=== PATIENT | male | born 1965 | race Caucasian/White ===

== ENCOUNTER 2017-01-11 06:48 | Emergency (ER) | payer OTHER ==
--- NOTE | ~2017-01-11 | CR281 ---
[facility] A Service of [facility] & [facility] RADIOLOGY TEXT RESULTS PATIENT: ESTEFANY DON LOCATION: SED : 61 UNIT #: [id number] AGE: [address]: Niles Tyler MD SEX: M ORDER DR: [id number] [place] [id number] E MR#: [id number] Acc #: [id number] NAME: ESTEFANY DON. : 1965 SEX: M STUDY DATE/TIME: 01/11/2017 7:51 UNIT: SED ROOM: STUDY DESCRIPTION: CR Wrist Min 3 View Lt Attending Physician: Niles Tyler M.D. Ordering Physician: Niles Tyler M.D. Primary Care Physician: Primary Care Physician No MEDICAL IMAGING REPORT This report is preliminary unless electronic signature is present. EXAM 3 views of the left wrist INDICATIONS Pain and swelling for about a month which has worsened over the past 3 days. Patient has no known injury. FINDINGS The patient has evidence of an old ulnar styloid fracture, but no acute fracture or subluxation is seen. There is some lucencies seen within the distal ulna, however the appearance is really more suggestive of subchondral cyst-like change. There does however appear to be some soft tissue swelling overlying the ulnar aspect the wrist. IMPRESSION Old ulnar styloid fracture. No acute fracture is seen. Patient does have some lucent areas within the distal ulna, which really have more the appearance of subchondral cyst-like change. No definite jaden erosive arthropathy is seen although the patient does have soft tissue swelling overlying the ulnar aspect of the wrist. If symptoms persist, further evaluation with MRI is recommended. Dictated by... Olga Barnett M.D. THIS IS AN ELECTRONICALLY VERIFIED REPORT Olga Barnett M.D. at 01/12/2017 4:35 PM AFF/to TD: 01/11/2017 17:22 JOB #: [id number] [facility] A Service of [facility] & [facility] RADIOLOGY TEXT RESULTS PATIENT: ESTEFANY DON LOCATION: [facility] : 61 UNIT #: [id number] AGE: [address]: Niles Tyler MD SEX: M ORDER DR: MEDICAL IMAGING REPORT Page 1 of 1
[~2017-01-11 06:48] MED LIST: CITALOPRAM HBR40 MG; ESCITALOPRAM OX10 MG PO; HUMALOG100 U/M2 SUBQ; LANTUS100 U/ML SUBQ; LISINOPRIL-HCTZ1 T21 PO; LISINOPRIL20 MG PO; LORTAB 10-3251 EACH PO; MIRAPEX ER2.25 MG PO; MOBIC PO; NEURONTIN600 MG PO; PRAMIPEXOLE DI0.5 MG PO; SYNTHROID PO; TRAZODONE HCL150 MG PO; VITAMIN D50000 UNIT PO
[2017-01-27] MEDS ORDERED: BASAGLAR K100 UNIT/1 SUBQ (14:00)
[2017-01-27] MEDS ORDERED: VITAMIN D250000 UNIT PO (14:00)
[2017-01-27] MEDS ORDERED: NEURONTIN600 MG PO (14:01)
[2017-01-27] MEDS ORDERED: PRAMIPEXOLE DI0.5 MG PO (14:01)
[2017-01-27] MEDS ORDERED: ZESTORETIC 20-1 EAC2 PO (14:01)
[2017-01-27] MEDS ORDERED: ESCITALOPRAM OX10 MG PO (14:02)
[2017-01-27] MEDS ORDERED: MELOXICAM7.5 MG PO (14:02)
[2017-01-27] MEDS ORDERED: LORTAB 10-3251 EACH PO (14:03)
[2017-01-27] MEDS ORDERED: TRAZODONE HCL150 MG PO (14:04)
[2017-01-27] MEDS ORDERED: ZESTORETIC 10-1 EAC1 PO (14:04)
[2017-01-27] MEDS ORDERED: LANTUS100 U/ML SUBQ (14:05)
[2017-01-27] MEDS ORDERED: HUMALOG100 UNIT/1 SUBQ (14:05)
== END 2017-01-11 07:15 | disposition home or self-care (01) ==
LOC: SED 06:48
DX: M25.532 Pain in left wrist (principal); E11.9 Type 2 diabetes mellitus without complications; I10 Essential (primary) hypertension; Z79.4 Long term (current) use of insulin; Z79.899 Other long term (current) drug therapy
CPT/HCPCS: 29125; 73110; 99283

== ENCOUNTER 2017-01-27 14:38 | Inpatient (IN) | payer OTHER ==
--- NOTE | ~2017-01-27 | CR72 ---
[facility] A Service of [facility] & [facility] RADIOLOGY TEXT RESULTS PATIENT: ESTEFANY DON LOCATION: [place] [address] : 61 UNIT #: [id number] AGE: [address]: Dexter Rodarte MD SEX: M ORDER DR: [id number] [facility] [address] [facility]. [place], [place] [address] [id number] I MR#: [id number] Acc #: [id number] NAME: ESTEFANY DON. : 1965 SEX: M STUDY DATE/TIME: 01/27/2017 15:38 UNIT: CEDOF ROOM: 71387 STUDY DESCRIPTION: CR Chest Single View Portable Attending Physician: Morgan Huynh M.D. Ordering Physician: Hiram Burgso D.O. Primary Care Physician: No Primary Care Physician MEDICAL IMAGING REPORT This report is preliminary unless electronic signature is present EXAM Portable chest. DATE OF EXAM 01/27/2017 INDICATIONS Weakness and hypotension today, high blood sugar. COMPARISON Comparison with 07/13/2008. FINDINGS The lungs are well expanded. There is no acute infiltrate. Heart size stable. Visualized osseous structures are unremarkable. IMPRESSION No active disease. Dictated by... Singh Randle M.D. THIS IS AN ELECTRONICALLY VERIFIED REPORT Singh Randle M.D. at 01/28/2017 10:02 AM TOMAS/eboni TD: 01/27/2017 19:52 JOB #: [id number] MEDICAL IMAGING REPORT Page 1 of 1 COPY
--- NOTE | ~2017-01-27 | EKG ---
PATIENT: ESTEFANY DON UNIT #: [id number] Ventricular Rate: 87 BPM Atrial Rate: 87 BPM P-R Interval: 170 ms QRS Duration: 100 ms Q-T Interval: 474 ms QTC Calculation(Bezet): 570 ms P Wilton: -4 degrees Calculated R Wilton: 50 degrees Calculated T Wilton: 23 degrees Diagnosis Line: Normal sinus rhythm Diagnosis Line: Prolonged QT Diagnosis Line: Abnormal ECG Diagnosis Line: When compared with ECG of 15-MAY-2016 20:21, Diagnosis Line: Nonspecific T wave abnormality has replaced Diagnosis Line: inverted T waves in Anterior leads Diagnosis Line: QT has lengthened Diagnosis Line: Confirmed by CHELE DOVER MD ([id number]) on 01/28/2017 Diagnosis Line: 7:16:25 PM INTERPRETING MD: STANISLAW JONES
--- NOTE | ~2017-01-27 | A ---
[facility] Nutrition Therapy DATE: 01/29/17 Patient: ESTEFANY DON Physician: HECTOR Address: [address] [place] [address] Room/Bed: [address] [place] [address], Zip: [place] [address] Admit Date: 01/27/17 Date of : 61 Height: 5 6 Weight: 231 105.2 NUTRITIONAL ASSESSMENT: REASON: Diet education consult Admitting Dx: 51 y/o male admitted with uncontrolled DM PMH: T2DM (since 2008), HTN, DJD, chronic pain related to neuropathy, hypothyroidism Anthropometrics: Ht: 66", Wt: 105.2 kg, BMI: 36 (Stage II obese) Labs: Glucose 87, POC 264, A1C 11.7 (05/2016) Meds: Levemir 40 units BID, Novolog (high SSI) Assessment: Chart reviewed, events noted. Patient admitted with uncontrolled DM, MD notes non-compliance with diet and medications. RD consulted to provide diet education. Patient lives with his sister. He takes insulin at home however does not always take with his meals. Currently on CC diet; reports usually eating only 1 meal per day and drinks 2L soda (diet and regular) daily. Dr. London saw for diabetes management and changed his insulin regimen, MD encouraged diet and med compliance. RD provided both verbal and written diet education with diabetic label reading tips, 1800 calorie 5-day sample menu and weight loss handouts. Patient showed moderate understanding and questionable motivation to follow diet, states "I know what to do I just need to do it." Glucose now better controlled, no new A1C lab available. See recs. Dx: Altered nutrition related lab values r/t uncontrolled DM AEB admission glucose 869, A1C 11.7 in 05/2016, RD consult for diet education. Intervention: DM/weight loss education Monitoring, Evaluation and Goals: 1. Gradual weight loss towards a healthy BMI range. 2. Understanding and implementation of DM diet. Recommendations: Continue current diet, encourage compliance with diet education that was provided as well as medications. Encourage weight loss. Optimize insulin regimen. Respectfully, [facility] Nutrition Therapy DATE: 01/29/17 Patient: ESTEFANY DON Physician: HECTOR Address: [address] [place] [address] Room/Bed: [address] [place] [address], Zip: [place] [address] Admit Date: 01/27/17 Date of : [birth year] Height: 5 6 Weight: [address], LD [facility] cc: client file
--- NOTE | ~2017-01-27 | DS ---
Unit #: [id number] #: [id number] Patient: ESTEFANY DON [id number] [facility] [address]. [place], [place] [address] [id number] I MR#: [id number] NAME: ESTEFANY DON. ROOM: 556 Age: 51 Sex: M Admission Date: 01/27/2017 : 1965 Discharge Date: 01/29/2017 Attending Physician: Dexter Rodarte M.D. Primary Care Physician: No Primary Care Physician DISCHARGE SUMMARY DIAGNOSES ON ADMISSION 1. Uncontrolled diabetes mellitus. 2. Lactic acidosis. DIAGNOSES ON DISCHARGE 1. Lactic acidosis, resolved. 2. Insulin-dependent diabetes mellitus, uncontrolled. 3. Hyponatremia, improved. 4. Degenerative joint disease. 5. History of neuropathy. 6. Hypothyroidism. CONSULTATION Dr. London in endocrinology consult. DIAGNOSTIC STUDIES LABORATORY: Patient's creatinine is 0.8. Sodium is 137, potassium is 3.6. WBC 7.6, hemoglobin 13.8, platelet count 211,000. The patient's blood cultures did not reveal any growth so far. Lactic acid level was 1.1. IMAGING: Chest x-ray did not reveal any active disease. CT scan of head did not reveal any acute findings. HOSPITAL COURSE A 51-year-old patient presented to [facility] with hyperglycemia and weakness. Details are as per admission H and P. The patient was treated for uncontrolled diabetes mellitus. He received IV fluids. The patient has responded well to treatment and he is feeling much better. Dr. London saw patient in constipation. Today patient is comfortable, is not in any acute distress. PHYSICAL EXAMINATION VITAL SIGNS: Reveal temperature of 98.4, pulse is 91 per minute, respiratory rate is 16 per minute, blood pressure is 115/68. HEENT: Revealed no conjunctival congestion. Sclerae is nonicteric. NECK: Supple. Trachea is central. RESPIRATORY: Revealed breath sounds equal bilaterally. No wheezes or crackles. HEART: Regular rate and rhythm. S1, S2. ABDOMEN: Soft, nontender. Bowel sounds are present in all four quadrants. Unit #: [id number] #: [id number] Patient: ESTEFANY DON NEUROLOGIC: The patient is alert to person, place, and time. Power is 5/5 bilaterally. Sensations are grossly intact. SKIN: Warm and dry. RECOMMENDATIONS ON DISCHARGE Condition is stable. Activity is as tolerated. MEDICATIONS As per med rec, medications are followin. Lisinopril/hydrochlorothiazide 10/12.5 mg p.o. daily. 2. Neurontin 600 mg p.o. four times a day. 3. Lexapro 10 mg p.o. daily. 4. Trazodone 150 mg p.o. nightly. 5. Pramipexole 0.5 mg p.o. daily. 6. Basaglar 100 units subcutaneous nightly. 7. Humalog 10 units subcutaneous t.i.d. 8. Lortab 10 mg p.o. q.6 hours p.r.n. which is a home med. 9. Vitamin D 50 units p.o. q. weekly. FOLLOWUP 1. The patient is advised to follow up with primary care physician in one week and have a CBC and BMP done. 2. Patient is advised to call primary care physician or go to ER if his condition changes. 3. Patient is advised to follow up with Dr. London in two to three weeks. The patient is advised to have Accu-Cheks a.c. and nightly and call primary care physician if less than 80 or greater than 400. The plan was discussed in detail with patient who showed complete understanding. Dictated by... Rachel Bernard TD: 01/29/2017 10:21 JOB #: [id number] CC: Ned Luna M.D. DISCHARGE SUMMARY Page 1 of 1 X Dexter Rodarte MD X DISCHARGE SUMMARY
--- NOTE | ~2017-01-27 | HP ---
Unit #: [id number] #: [id number] Patient: ESTEFANY DON [id number] [address] [address] [id number] I MR#: [id number] NAME: ESTEFANY DON. ROOM: 11154 Age: 51 Sex: M Admission Date: 01/27/2017 : 1965 Attending Physician: Morgan Huynh M.D. Primary Care Physician: No Primary Care Physician HISTORY AND PHYSICAL CHIEF COMPLAINT The high sugars and right leg weakness and shakiness. HISTORY OF PRESENT ILLNESS The patient is a 51-year-old male with a history of a type 2 diabetes mellitus, hypertension, chronic pain, presented to the emergency room with the high sugars and the right leg weakness and shakiness. The patient stated the patient woke up at one o'clock this morning and went to the bathroom. While returning from bathroom patient felt weakness and numbness in the right leg below the knee. The patient denies any dizziness, any headache or any fall. The patient stated the patient has been started on a new medication yesterday and the patient took the first dose or Basaglar KwikPen last night. The patient was found to be hypotensive in the emergency room with the blood pressure in the range of 86 and lactic acid elevated up to 3.9 and the patient is being admitted for the above reasons. Patient denies any fever, chills, nausea or vomiting, chest pain, dizziness. PAST MEDICAL HISTORY History of DJD, chronic pain secondary to neuropathy and polyneuropathy along with DJD, type 2 diabetes since 2008, hypertension, hypothyroidism. 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 ALLERGIES None. HOME MEDICATIONS She takes Neurontin, pramipexole, Lexapro, Lortab, trazodone, lisinopril, hydrochlorothiazide and Humalog. FAMILY HISTORY Positive for diabetes. SOCIAL HISTORY The patient lives with his sister, seldom drinks alcohol, is a lifelong nonsmoker and does not abuse drugs. REVIEW OF SYMPTOMS Fourteen-point review of symptoms performed and only pertinent positive findings as described above, remaining are negative. Unit #: [id number] #: [id number] Patient: ESTEFANY DON PHYSICAL EXAMINATION GENERAL APPEARANCE: On examination the patient is lying on a bed not in acute distress. VITAL SIGNS: Temperature is 97.4, pulse 90, respiratory rate 14, blood pressure 86/61, sating 92% at room air. HEENT: Head atraumatic, normocephalic. Pupils equal, round and reacting to light and accommodation. Extraocular movements are intact. Dry mucous membranes. NECK: Supple. LUNGS: Clear to auscultation. HEART: Regular rate and rhythm. ABDOMEN: Soft, positive bowel sounds. EXTREMITIES: Right foot is status post partial amputation with a clean dry stump. NEUROLOGIC: The patient is alert, awake, oriented. No gross focal motor deficit. DIAGNOSTIC STUDIES IMAGING: Patient had a CT of the head that shows motion degraded but otherwise negative study. No acute findings. LABORATORY DATA: Glucose of 869, BUN 24, creatinine 2.1, sodium 120, potassium 3.2, chloride 83, bicarb 22, calcium 9.5, AST 22, ALT 30, alkaline phosphatase 183 and lactic acid of 3.9 down to 3.1 and beta hydroxybutyrate 0.19, alcohol less than 5, INR is 1.1, WBC 10.4, hemoglobin 15.6, hematocrit 48.5, platelets 344, neutrophils 76.7%. Urine tox is negative and UA is negative. ASSESSMENT 1. Uncontrolled diabetes. 2. Lactic acidosis, likely secondary to the new medication that the patient started last night. 3. Right leg weakness. 4. Acute kidney injury. PLAN 1. Plan is to admit the patient to the inpatient with the telemetry. 2. Continue with the IV fluid with normal saline at 100 mL per hour. 3. Continue with the sliding scale and Accu-Chek and hold the Basaglar. 4. Patient has no evidence of infection and the antibiotics are not started. 5. Replace the potassium per protocol. 6. Repeat the lactic acid again in the morning. Further recommendations will follow. Dictated by Rachel Barbosa TD: 01/27/2017 19:37 JOB #: [id number] Unit #: [id number] #: [id number] Patient: ESTEFANY DON HISTORY AND PHYSICAL Page 1 of 1 X X HISTORY AND PHYSICAL
--- NOTE | ~2017-01-27 | CO ---
Unit #: [id number] #: [id number] Patient: ESTEFANY DON [id number] [address] [place], [place] [address] [id number] I MR#: [id number] NAME: ESTEFANY DON ROOM: 556 Age: 51 Sex: M Admission Date: 01/27/2017 : 1965 Attending Physician: Dexter Rodarte M.D. Consultation Date: 01/28/2017 CONSULTATION REPORT HISTORY OF PRESENT ILLNESS This is a 51-year-old male with obesity, type 2 diabetes mellitus, chronic pain disorder, hypertension, poor compliance with diet. He reported that he was seeing [facility], but since the MD2U quit taking the [employer], he had no physician for 2 months. He ran out of his insulin in the December. His blood sugar has been running high. He came to the emergency room for not feeling well with elevated blood sugars, weakness, and shaking. His blood sugar was over 800. He is given some subcu insulins. I am not sure if he was on any insulin drip while in the emergency room. His last blood sugar was 380. I have been asked to see the patient for further management. REVIEW OF SYSTEMS The patient reported polyuria; polydipsia; drinking regular cokes and diet cokes, drinks about 2 L everyday. Declines any blurry vision. Does have some numbness and tingling in the feet. No history of any laser treatment in the past. Rest of the 12-point review of systemsis unremarkable. PAST MEDICAL HISTORY See HPI. PAST SURGICAL HISTORY Right hand surgery and right foot partial amputation as a child. ALLERGIES None known. MEDICATIONS Reviewed and was taking Lantus insulin 80 units daily and Humalog about 10 units each meal. Other medications include lisinopril, trazodone, Lexapro, Neurontin. FAMILY HISTORY Positive for diabetes. SOCIAL HISTORY Lives with his sister. Seldom drinks alcohol. Nonsmoker. PHYSICAL EXAMINATION GENERAL: He is obese, comfortable, in no acute respiratory distress. VITAL SIGNS: Temperature 98, pulse is 68. HEENT: EOMI. Pupils are equally reactive to light. NECK: Supple. No thyromegaly noted. CHEST: Good air entry. Unit #: [id number] #: [id number] Patient: ESTEFANY DON CVS: Regular rhythm. No murmurs. ABDOMEN: Soft, nontender. Bowel sounds positive. EXTREMITIES: Right foot partial amputation. DIAGNOSTIC STUDIES LABORATORY RESULTS: Sodium is 120, potassium 3.3, chloride 98, CO2 is 24. A1c is 11.7. ASSESSMENT 1. Type 2 diabetes mellitus, poorly controlled due to poor compliance with the diet and medications. 2. Peripheral neuropathy secondary to the uncontrolled diabetes. 3. Hyponatremia due to dehydration. 4. Hypokalemia. PLAN Discussed with the patient at length about the need for proper compliance and diet changes. We will get the Nutrition consult. Change Levemir 40 units b.i.d., NovoLog 10 units each meal. Cover with medium insulin. Continue supplemental insulin as needed. Limit carbs to 45 to 60 g per meal. Continue to follow the patient for further management. Dictated by... Rachel Agosto/fred TD: 01/29/2017 01:38 JOB #: [id number] CONSULTATION REPORT Page 1 of 1 X Vladimir London MD X CONSULTATION REPORT
--- NOTE | ~2017-01-27 | CT71 ---
[facility] A Service of [facility] RADIOLOGY TEXT RESULTS PATIENT: ESTEFANY DON LOCATION: [facility] : 61 UNIT #: [id number] AGE: [address]: Dexter Rodarte MD SEX: M ORDER DR: [id number] [facility] [address] [facility]. [place], [place] [address] [id number] MR#: [id number] #: [id number] NAME: ESTEFANY ODN. : 1965 SEX: M STUDY DATE/TIME: 01/27/2017 15:08 UNIT: RAUL ROOM: STUDY DESCRIPTION: CT Head Wo Contrast Attending Physician: Hiram Burgos D.O. Ordering Physician: Hiram Burgos D.O. Primary Care Physician: No Primary Care Physician MEDICAL IMAGING REPORT This report is preliminary unless electronic signature is present EXAM Head CT, no contrast, 01/27/2017 PROCEDURE Axial unenhanced head CT. This CT exam was performed with one or more of the following radiation dose reduction techniques: automatic exposure control, adjustment of mA and/or kV according to patient size, and iterative reconstruction. COMPARISON None HISTORY Right leg numbness and tingling paresthesia since this morning. FINDINGS The study is mildly motion-degraded. Allowing for this, there is no hemorrhage or mass, hydrocephalus, or extraaxial fluid collection, or evidence of acute ischemia or other acute abnormality. IMPRESSION Motion-degraded, but otherwise negative study. No acute findings. Dictated by... Peng Sanon M.D. THIS IS AN ELECTRONICALLY VERIFIED REPORT Peng Sanon M.D. at 01/29/2017 1:53 PM BEATRICE/virgen [facility] A Service [facility] RADIOLOGY TEXT RESULTS PATIENT: ESTEFANY DON LOCATION: [facility] : [birth year] UNIT #: [id number] AGE: [address]: Dexter Rodarte MD SEX: M ORDER DR: TD: 01/27/2017 17:45 JOB #: [id number] MEDICAL IMAGING REPORT Page 1 of 1 COPY
[2017-01-27 14:16] LABS: POC - CKMB <1.0 ng/mL (0.0-7.9); POC - TROPONIN <0.05 ng/mL (<=0.05)
[~2017-01-27 14:38] MED LIST changes: +BASAGLAR K100 UNIT/1 SUBQ; +HUMALOG100 UNIT/1 SUBQ; +MELOXICAM7.5 MG PO; +VITAMIN D250000 UNIT PO; +ZESTORETIC 10-1 EAC1 PO; +ZESTORETIC 20-1 EAC2 PO
[2017-01-27 14:45] LABS: BASOPHIL# 0.1 X10e3 (0-0.3); BASOPHIL% 1.3 % (0-2.5); EOSINOPHIL# 0.2 X10e3 (0-0.7); EOSINOPHIL% 1.6 % (0.0-7.0); HEMATOCRIT 48.5 % (38.0-50.0); HEMOGLOBIN 15.6 gm/dL (13.0-16.0); LYMPHOCYTE# 1.4 X10e3 (1.0-3.5); LYMPHOCYTE% 13.8 % (17.0-45.0); MEAN CELL VOLUME 95.1 FL (83-96); MEAN CORPUSCULAR HEMOGLOBIN 30.7 PG (28-34); MEAN CORPUSCULAR HGB CONC 32.2 g/dL (30-36); MEAN PLATELET VOLUME 9.5 FL (6.5-11.5); MONOCYTE# 0.7 X10e3 (0-1.0); MONOCYTE% 6.6 % (3.0-12.0); NEUTROPHIL% 76.7 % (40-75); PLATELET COUNT 344 X10e3 (140-420); RED CELL DISTRIBUTION WIDTH 13.9 % (11.0-15.5); WHITE BLOOD COUNT 10.4 X10e3 (4.0-10.5)
[2017-01-27 14:47] LABS: DIFF IND NO
[2017-01-27 15:30] LABS: URINE SOURCE CLEAN CATCH
[2017-01-27 15:39] LABS: URINE APPEARANCE CLEAR; URINE BILIRUBIN NEG (NEG); URINE BLOOD TRACE (NEG); URINE COLOR YELLOW; URINE GLUCOSE >1000 MG/DL (NEG); URINE KETONE NEG (NEG); URINE LEUKOCYTE ESTERASE NEG (NEG); URINE NITRATE NEG (NEG); URINE PROTEIN NEG (NEG); URINE SPECIFIC GRAVITY 1.024 (1.003-1.035); URINE UROBILINOGEN 0.2 MG/DL (NEG)
[2017-01-27 15:41] LABS: ALBUMIN SERUM 3.7 g/dL (3.5-5.0); ALKALINE PHOSPHATASE 183 U/L (32-92); ALT (SGPT) 30 U/L (10-40); AST (SGOT) 22 U/L (10-42); BETA HYDROXYBUTYRATE 0.19 MMOL/L (0.02-0.27); BILIRUBIN, DIRECT 0.2 mg/dL (0.0-0.2); BILIRUBIN,INDIRECT 0.6 mg/dL (0.0-0.9); BILIRUBIN,TOTAL 0.8 mg/dL (0.2-2.0); BLOOD UREA NITROGEN 24 mg/dL (9-23); BUN/CREATININE RATIO 11.42; CALCIUM SERUM 9.5 mg/dL (8.4-10.2); CARBON DIOXIDE 22 mmol/L (22-31); CHLORIDE 83 mmol/L (100-111); CREATININE SERUM 2.1 mg/dL (0.6-1.4); GLOM FILT RATE Estimated 34.9 mL/min (>60); POTASSIUM 3.2 mmol/L (3.5-5.1); PROTEIN TOTAL SERUM 7.3 g/dL (6.0-8.3)
[2017-01-27 15:42] LABS: ALCOHOL BLOOD <5 mg/dL (0); GLUCOSE FASTING 869 mg/dL (70-110); SODIUM 120 mmol/L (135-145)
[2017-01-27 15:42] LABS: URBCS1 AUWI 0-2 /[HPF] (0-2); URINE BACTERIA AUWI NEG (NEGATIVE); URINE SQUAMOUS EPITHELIAL CELL NONE SEEN /[HPF]; UWBCS1 AUWI 0-2 (0-5)
[2017-01-27 15:44] LABS: CULTURE INDICATED? NO
[2017-01-27 15:50] LABS: AMPHETAMINE NEG (NEG); BARBITURATES NEG (NEG); BENZODIAZEPINES NEG (NEG); COCAINE NEG (NEG); MARIJUANA NEG (NEG); OPIATES NEG (NEG); TRICYCLIC ANTIDEPRESSANTS NEG (NEG); U METHADONE NEG (NEG)
[2017-01-28 07:29] LABS: HEMATOCRIT 41.1 % (38.0-50.0); HEMOGLOBIN 13.8 gm/dL (13.0-16.0); MEAN CORPUSCULAR HEMOGLOBIN 30.6 PG (28-34); MEAN CORPUSCULAR HGB CONC 33.6 g/dL (30-36); MEAN PLATELET VOLUME 8.8 FL (6.5-11.5); RED BLOOD COUNT 4.51 X10e (3.90-5.60); RED CELL DISTRIBUTION WIDTH 13.3 % (11.0-15.5); WHITE BLOOD COUNT 7.6 X10e3 (4.0-10.5)
[2017-01-28 07:34] LABS: MEAN CELL VOLUME 91.1 FL (83-96)
[2017-01-28 08:08] LABS: BUN/CREATININE RATIO 15.45; CALCIUM SERUM 8.5 mg/dL (8.4-10.2); CREATININE SERUM 1.1 mg/dL (0.6-1.4); GLOM FILT RATE Estimated 76.3 mL/min (>60); POTASSIUM 3.3 mmol/L (3.5-5.1)
[2017-01-29 07:44] LABS: BUN/CREATININE RATIO 17.5; CALCIUM SERUM 8.8 mg/dL (8.4-10.2); CREATININE SERUM 0.8 mg/dL (0.6-1.4); POTASSIUM 3.6 mmol/L (3.5-5.1)
[2017-01-29] MEDS ORDERED: TYLENOL325 M1 PO (10:51)
== END 2017-01-29 14:47 | disposition home or self-care (01) | DRG 638 ==
LOC: CED 14:38 → CEDOF 19:05 → C5B 22:24
PROVIDERS: Emergency Medicine; Internal Medicine
DX: E11.65 Type 2 diabetes mellitus with hyperglycemia (principal); E87.2 Acidosis; N17.9 Acute kidney failure, unspecified; E87.1 Hypo-osmolality and hyponatremia; Z91.14 Patient's other noncompliance with medication regimen; Z91.11 Patient's noncompliance with dietary regimen; E86.0 Dehydration; M19.90 Unspecified osteoarthritis, unspecified site; E11.42 Type 2 diabetes mellitus with diabetic polyneuropathy; Z79.4 Long term (current) use of insulin; E03.9 Hypothyroidism, unspecified; K59.00 Constipation, unspecified; Z83.3 Family history of diabetes mellitus; E87.6 Hypokalemia; I10 Essential (primary) hypertension
CPT/HCPCS: 36415; 70450; 71010; 80048; 80076; 80307; 81003; 82010; 82553; 82947; 83605; 83735; 84132; 84484; 85025; 85027; 87040; 93005; 94760; 96361; 96374; 99285; G0480; J1650; J1815

== ENCOUNTER 2017-02-20 18:05 | Inpatient (IN) | payer OTHER ==
--- NOTE | ~2017-02-20 | EKG ---
PATIENT: ESTEFANY DON UNIT #: [id number] Ventricular Rate: 104 BPM Atrial Rate: 104 BPM P-R Interval: 168 ms QRS Duration: 102 ms Q-T Interval: 376 ms QTC Calculation(Bezet): 494 ms P Arp: 1 degrees Calculated R Arp: 59 degrees Calculated T Arp: 15 degrees Diagnosis Line: Sinus tachycardia Diagnosis Line: Incomplete right bundle branch block Diagnosis Line: Borderline ECG Diagnosis Line: When compared with ECG of 27-JAN-2017 15:56, Diagnosis Line: QT has shortened Diagnosis Line: Confirmed by ANDRE ESCOBEDO MD ([id number]) on Diagnosis Line: 02/23/2017 8:34:32 AM INTERPRETING MD: GREGG JONES
--- NOTE | ~2017-02-20 | CT98 ---
[facility] A Service of [facility] & [facility] RADIOLOGY TEXT RESULTS PATIENT: ESTEFANY DON LOCATION: C4B 451-01 : 61 UNIT #: [id number] AGE: [address]: Leandro Morales MD SEX: M ORDER DR: [id number] [facility] [address] [facility]. [place], [place] [address] [id number] I MR#: [id number] Acc #: [id number] NAME: ESTEFANY DON. : 1965 SEX: M STUDY DATE/TIME: 02/21/2017 18:31 UNIT: [facility] ROOM: [facility] STUDY DESCRIPTION: CT Lumbar Spine Wo Cont Attending Physician: Leandro Morales M.D. Ordering Physician: Nydia Novak M.D. Primary Care Physician: No Primary Care Physician MEDICAL IMAGING REPORT This report is preliminary unless electronic signature is present EXAM CT of the lumbar spine without. HISTORY Left leg numbness since 3 o'clock yesterday. History of diabetes, hypertension, anxiety, depression, arthritis and some type of cancer, not otherwise specified by the patient. TECHNIQUE CT of the lumbar spine performed in the axial plane without contrast followed by sagittal and coronal reconstructed images. This CT exam was performed with one or more of the following radiation dose reduction techniques: automatic exposure control, adjustment of mA and/or kV according to patient size, and iterative reconstruction. COMPARISON 05/15/2016 FINDINGS Images are grainy and limited. There is subtle degenerative retrolisthesis of L5 on S1 unchanged. There is endplate spondylosis and loss of intervertebral disc height redemonstrated most apparent at L1-2 and L2-3. Mild chronic anterior wedging L1-L2 unchanged. No acute fracture or bone destruction. There is again mild levoconvex lumbar scoliosis. T12-L1, there if facet degenerative change right greater than left, with no apparent canal stenosis. No change in the posterior endplate spondylosis. Only mild right-sided L1-2, there is asymmetric facet degenerative change, moderate on the right with endplate spondylosis. Probably some mild canal stenosis. There is right-sided foraminal narrowing. [facility] A Service of [facility] & [facility] RADIOLOGY TEXT RESULTS PATIENT: ESTEFANY DON LOCATION: [facility] 451-01 : 61 UNIT #: [id number] AGE: [address]: Leandro Morales MD SEX: M ORDER DR: At L2-3, there is yrbm-gg-dlsjxnkd bilateral facet degenerative change. There is endplate spondylosis and concentric disc bulging and probably at least moderate canal stenosis. Probably right-sided foraminal narrowing. L3-4, facet degenerative change severe right, moderate left with concentric disc bulging, endplate spondylosis, mild right foraminal narrowing, probably not significant canal stenosis. At L4-5, facet arthritis is severe bilaterally, worse on the right, likely ligamentum flavum thickening. There is some endplate spondylosis. I cannot accurately access the soft tissues. Likely at least some mild canal stenosis. Likely at least some right foraminal narrowing. At L5-S1, severe facet arthritis bilaterally, some endplate spondylosis and bilaterally foraminal narrowing. No bony canal stenosis but can't exclude soft tissue canal compromise. Vascular calcifications are present. There is a large nonobstructing calculus of the right kidney, upper pole again seen about 11 mm in diameter. IMPRESSION 1. This patient has again extensive lumbar degenerative disease. Unfortunately, the patient's size and the CT technical factors result in a limited study. The images are grainy and suboptimal for assessment of the degree of soft tissue canal compromise. If the patient is a candidate, he is best assessed with a nonemergent MRI of the lumbar spine. At this time, there is again multiple level facet arthritis, some of which is severe. There is multiple level canal and foraminal compromise. In general, the foraminal impingement appears to be worse on the right side. Please refer to the drmro-zh-qdzpt discussion. 2. Partly seen is a large nonobstructing calculus in the right upper pole kidney. This was present previously. The lumbar degenerative changes were also present 05/15/2016. There is no acute fracture or bone destruction appreciated. STAT * RESULT Dictated by... Renu Mackay M.D. THIS IS AN ELECTRONICALLY VERIFIED REPORT Renu Mackay M.D. at 02/21/2017 10:03 PM BEE/eboni TD: 02/21/2017 21:44 JOB #: [id number] [facility] A Service of [facility] RADIOLOGY TEXT RESULTS PATIENT: ESTEFANY DON LOCATION: [facility] 451- : 61 UNIT #: [id number] AGE: [address]: Leandro Morales MD SEX: M ORDER DR: MEDICAL IMAGING REPORT Page 1 of 1 COPY
--- NOTE | ~2017-02-20 | US37 ---
[facility] A Service of [facility] RADIOLOGY TEXT RESULTS PATIENT: ESTEFANY DON LOCATION: [facility] : 61 UNIT #: [id number] AGE: [address]: Paulette Kennedy MD SEX: M ORDER DR: [id number] [facility] [address] [facility] [place] [facility]. [place], [place] [address] [id number] I MR#: [id number] Acc #: [id number] NAME: ESTEFANY DON. : 1965 SEX: M STUDY DATE/TIME: 02/23/2017 15:03 UNIT: [facility] ROOM: [facility] STUDY DESCRIPTION: US Carotid W/Doppler Bilateral Attending Physician: Paulette Kennedy M.D. Ordering Physician: Aisha Torre M.D. Primary Care Physician: No Primary Care Physician MEDICAL IMAGING REPORT This report is preliminary unless electronic signature is present EXAM Carotid Doppler dated 02/23/2017 CLINICAL HISTORY An 18-month history of incoordination, loss of balance and occasional episodes of syncope. Transient episode 3 days ago with left leg numbness. PROCEDURE Smalls-scale imaging, color-Doppler flow imaging and Doppler waveform analysis FINDINGS There is minimal smalls-scale evidence of plaque in the carotid bulbs bilaterally. There is antegrade flow in both common internal and external carotid and vertebral arteries. Right internal carotid, peak systolic velocity is 1.11 meters per second with a brisk upstroke and mild spectral broadening. Left internal carotid peak systolic velocity is 113 cm/sec with a brisk upstroke and mild spectral broadening. IMPRESSION Less than 50% stenosis in both internal carotids by NASCET criteria though there is plaque in both carotid bulbs. Antegrade flow in both external carotid and vertebral arteries and internal carotid arteries as well. Dictated by... Peng Sanon M.D. [facility] A Service of [facility] & [facility] RADIOLOGY TEXT RESULTS PATIENT: ESTEFANY DON LOCATION: [facility] : 61 UNIT #: [id number] AGE: [address]: Paulette Kennedy MD SEX: M ORDER DR: THIS IS AN ELECTRONICALLY VERIFIED REPORT Peng Sanon M.D. at 02/25/2017 1:23 PM BEATRICE/ingrid TD: 02/23/2017 20:18 JOB #: [id number] MEDICAL IMAGING REPORT Page 1 of 1 COPY
--- NOTE | ~2017-02-20 | CR181 ---
[facility] A Service of [facility] & [facility] RADIOLOGY TEXT RESULTS PATIENT: ESTEFANY DON LOCATION: [place] [address] : 61 UNIT #: [id number] AGE: [address]: Leandro Morales MD SEX: M ORDER DR: [id number] [facility] [address] [facility]. [place], [place] [address] [id number] I MR#: [id number] Acc #: [id number] NAME: ESTEFANY DON. : 1965 SEX: M STUDY DATE/TIME: 02/20/2017 22:58 UNIT: [facility] ROOM: [id number] STUDY DESCRIPTION: CR Lumbar Spine 2 or 3 Views Attending Physician: Leandro Morales M.D. Ordering Physician: Hiram Burgos D.O. Primary Care Physician: Primary Care Physician No MEDICAL IMAGING REPORT This report is preliminary unless electronic signature is present EXAM Lumbar spine 02/20/2017 2258 hours INDICATION Left lower extremity numbness that started today upon waking up. No trauma. FINDINGS 3 views of the lumbar spine are compared with lumbar CT from 05/15/2016. Again seen is multilevel degenerative disc disease with endplate spurring. There is multilevel facet arthropathy. There are no compression fractures. Very mild degree of levoscoliosis is unchanged. IMPRESSION Multilevel degenerative disc disease and facet arthropathy, seen to a large degree on the prior CT scan. No acute fracture or subluxation. Dictated by... Damaso Myers Jr., M.D. THIS IS AN ELECTRONICALLY VERIFIED REPORT Damaso Myers Jr., M.D. at 02/21/2017 9:12 PM MALU/shelli TD: 02/21/2017 07:28 JOB #: [id number] MEDICAL IMAGING REPORT Page 1 of 1 COPY
--- NOTE | ~2017-02-20 | MR113 ---
[facility] A Service of [facility] & [facility] RADIOLOGY TEXT RESULTS PATIENT: ESTEFANY DON LOCATION: C4B 451-01 : 61 UNIT #: [id number] AGE: [address]: Paulette Kennedy MD SEX: M ORDER DR: [id number] [facility] [address] [facility] [facility]. [place], [place] [address] [id number] I MR#: [id number] Acc #: [id number] NAME: ESTEFANY DON : 1965 SEX: M STUDY DATE/TIME: 02/22/2017 20:23 UNIT: [facility] ROOM: [facility] STUDY DESCRIPTION: MR Lumbar Wo Contrast Attending Physician: Paulette Kennedy M.D. Ordering Physician: Aisha Torre M.D. Primary Care Physician: Primary Care Physician No MRI CENTER REPORT This report is preliminary unless electronic signature is present. EXAM MRI of the lumbar spine without HISTORY Sudden onset left leg numbness since 03:00 a.m. 02/20/2017. History of diabetes, hypertension. COMMENT MRI of the lumbar spine performed without contrast using routine 1.5T imaging technique. There is some motion limitation of the study. There is mild levoconvex lumbar scoliosis. Sagittal alignment is normal. Bone marrow signal intensity is unremarkable. The discs are desiccated in general and there is mild loss of disc height endplate spondylosis at L1-2 and L2-3. The conus medullaris terminates at L1 and is normal. There is a lesion exophytic from the left lower pole kidney not well seen. Not clearly a simple cyst and for this reason I would recommend correlation with followup ultrasound. It is about 2.3 cm in diameter. There is edema in the posterior subcutaneous fat. At L1-2, there is moderate right and milder left-side facet degenerative change with concentric disc bulging, endplate spondylosis, mild effacement of the thecal sac but no central canal stenosis. There is mild right inferior foraminal narrowing. At L2-3, there is moderate facet degenerative change bilaterally with mild concentric disc bulge and endplate spondylosis. Mild bilateral inferior foraminal narrowing and very mild canal stenosis. There is a slightly more focal disc protrusion in the right paramedian location. At L3-4, severe facet arthritis bilaterally, right greater than left with only minor posterior disc bulge. No central canal stenosis. Mild mass effect on the bilateral-lateral recesses. Mild right greater than left STS. [facility] A Service of [facility] & [facility] RADIOLOGY TEXT RESULTS PATIENT: ESTEFANY DON LOCATION: [place] [address]- : 63 UNIT #: [id number] AGE: [address]: Paulette Kennedy MD SEX: M ORDER DR: side foraminal narrowing. At L4-5, quite severe facet arthritis bilaterally with fluid in the facet joint. This is worse to the right than the left. There is associated ligamentum flavum thickening. There is some minor posterior disc bulge. Combination of findings result in mild canal stenosis with mass effect on the bilateral-lateral recesses. Mild right-side foraminal narrowing. There appears to be a component of synovial cyst formation within ligamentum flavum structures at the level of L4-5 posteriorly at midline, slightly larger to the right than the left. It measures up to about 8 mm in diameter and contributes to the canal stenosis at the 4-5 level. At L5-S1, severe facet arthritis bilaterally. No focal disc protrusion or extrusion. There is some focal mass effect on the left lateral recess expected location left S1 root by the facet degenerative change. There is sztl-kk-rxksgvkw left and only mild right-side foraminal narrowing. IMPRESSION 1. Multiple level lumbar degenerative changes, details provided above. There is mild lumbar canal stenosis. Please refer to the comment section for description of canal and foraminal impingement. Particularly severe facet arthritis at the 4-5 and 5-1 levels. 2. There is a probable left renal cyst but it is not well characterized and measures up to 2.3 cm in dimension. I would recommend correlation with a renal ultrasound to exclude a complex cystic or solid mass lesion. STAT * RESULT Dictated by... Renu Mackay M.D. THIS IS AN ELECTRONICALLY VERIFIED REPORT Renu Mackay M.D. at 02/23/2017 7:36 AM BEE/mireya TD: 02/22/2017 21:59 JOB #: [id number] MRI CENTER REPORT Page 1 of 1 COPY
--- NOTE | ~2017-02-20 | HP ---
Unit #: [id number] #: [id number] Patient: ESTEFANY DON [id number] [address] [place], [place] [address] [id number] I MR#: [id number] NAME: ESTEFANY DON. ROOM: [facility] Age: 51 Sex: M Admission Date: 02/21/2017 : 1965 Attending Physician: Paulette Kennedy M.D. Primary Care Physician: No Primary Care Physician HISTORY AND PHYSICAL CHIEF COMPLAINT Left leg numbness. HISTORY OF PRESENT ILLNESS This patient basically is a 51-year-old male with a past medical history of uncontrolled diabetes mellitus and hypothyroidism, neuropathy, degenerative joint disease, hyponatremia who presented with a complaint of left leg numbness, sudden onset, and was found to have abnormal renal function, admitted with acute kidney injury. I am seeing the patient at bedside complaining of mild left leg numbness. Denies any headache, blurry vision. No chest pain. PHYSICAL EXAMINATION VITAL SIGNS: Temperature 98, pulse 87, respirations 12, blood pressure 110/70. NEUROLOGICAL: He is awake, alert, oriented. He does have some left leg numbness. CVS: S1+ S2. RESPIRATION: Bilateral air entry, bilateral mild rhonchi. GI: Nontender, soft. Bowel sounds positive. EXTREMITIES: No edema. He has a right foot toe amputation. SKIN: No rashes, no ulcers. LYMPHATIC: No lymphadenopathy. PAST MEDICAL HISTORY As described above. MEDICATIONS As per [facility], has been reviewed. DIAGNOSTIC STUDIES Labs have been reviewed. IMAGING: His imaging on presentation showed CT of the head. No acute abnormality. Chest x-ray on admission showed normal. ASSESSMENT AND PLAN 1. Left leg numbness. 2. Acute kidney injury. 3. Leukocytosis. Plan is to admit the patient, start him on empiric antibiotics and also Unit #: [id number] #: [id number] Patient: ESTEFANY DON continue IV fluids. Nephrology to see. GI and DVT prophylaxis. CT lumbosacral spine without IV contrast. We will consult neurology. GI and DVT prophylaxis. Physical therapy to see the patient, control sugars. Please see orders for detailed plan. We will continue to follow. Dictated by Rachel Daigle/maverick TD: 02/22/2017 08:34 JOB #: [id number] HISTORY AND PHYSICAL Page 1 of 1 X Nydia Novak MD HISTORY AND PHYSICAL
--- NOTE | ~2017-02-20 | CO ---
Unit #: [id number] #: [id number] Patient: ESTEFANY MCGILL [id number] [address] [place], [place] [address] [id number] I MR#: [id number] NAME: ESTEFANY MCGILL ROOM: 451 Age: 51 Sex: M Admission Date: 02/21/2017 : 1965 Attending Physician: Paulette Kennedy M.D. Consultation Date: 02/22/2017 CONSULTATION REPORT CHIEF COMPLAINT Sudden onset of left leg numbness. HISTORY OF PRESENT ILLNESS Mr. Mcgill is a 51-year-old gentleman with history of morbid obesity, diabetes, diabetic neuropathy, hypothyroidism, degenerative joint disease, and hyponatremia, who was admitted for sudden onset of left leg numbness. The patient reports that the numbness was up to his knee and started 3 days ago. Since then, the numbness has resolved and he is now at his baseline numbness in both feet caused by his neuropathy. He denies any weakness or any other neurologic symptoms. REVIEW OF SYSTEMS GENERAL: Negative. SKIN: Negative. HEENT: Negative. PULMONARY: Negative. CARDIOVASCULAR: Negative. GI: Negative. : Negative. MUSCULOSKELETAL: Positive for joint pains. NEUROLOGIC: Positive for numbness. PSYCHIATRIC: Negative. PAST MEDICAL HISTORY As above. SOCIAL HISTORY Negative for tobacco. He rarely drinks alcohol. Denies recreational drug use. FAMILY HISTORY Positive for maternal grandparents having strokes. PHYSICAL EXAMINATION GENERAL: He is of morbidly obese appearance. HEART: Sounds are regular. NECK: There are no carotid bruits. LUNGS: Colon are clear. EXTREMITIES: There is mild peripheral edema. VITAL SIGNS: Blood pressure 134/70, pulse 93, temperature 97.9, respirations 20. NEUROLOGIC: He is alert, oriented x3 with intact language, fluency, and comprehension. Fund of knowledge is average. Memory and attention span Unit #: [id number] #: [id number] Patient: ESTEFANY MCGILL are normal. Visual colon are full. There is no papilledema. Extraocular muscles are intact. Pupils are equal, round, and reactive to light. Facial sensation and movements are symmetric. Hearing to conversation speech is normal. Palate elevates symmetrically. Trapezius full strength bilaterally. Tongue protrudes midline. There is no dysarthria or dysphagia. He has full strength in his extremities, but decreased sensation in stocking distribution. Vxdtca-sl-mftk coordination is intact. He is areflexic throughout. DIAGNOSTIC STUDIES IMAGING STUDIES: I personally reviewed his head CT and it is negative for any acute abnormalities. ASSESSMENT AND PLAN In summary, Mr. Frausto had sudden onset of left lower extremity numbness, which persisted for 3 days and has now resolved. The symptoms may have been caused by small lacunar stroke and we will therefore order an MRI and MRA of the brain. The patient is neurologically stable and may be discharged if his MRI and MRA of the brain are negative for any significant findings. Dictated by... Rachel Gallardo/fred TD: 02/23/2017 01:03 JOB #: [id number] CONSULTATION REPORT Page 1 of 1 X Aisha Torre MD X CONSULTATION REPORT
--- NOTE | ~2017-02-20 | MR18 ---
[facility] A Service of [facility] & [facility] RADIOLOGY TEXT RESULTS PATIENT: ESTEFANY DON LOCATION: C4B 451-01 : 61 UNIT #: [id number] AGE: [address]: Paulette Kennedy MD SEX: M ORDER DR: [id number] [facility] [address] [facility]. [place], [place] [address] [id number] I MR#: [id number] Acc #: [id number] NAME: ESTEFANY DON. : 1965 SEX: M STUDY DATE/TIME: 02/22/2017 19:30 UNIT: [facility] ROOM: [facility] STUDY DESCRIPTION: MR Brain Wo Contrast Attending Physician: Paulette Kennedy M.D. Ordering Physician: Aisha Torre M.D. Primary Care Physician: Primary Care Physician No MRI CENTER REPORT This report is preliminary unless electronic signature is present. EXAM MRI brain HISTORY Dizziness for a week to 10 days, sudden onset left leg numbness at 3 a.m. on 02/20/2017. COMMENT MRI of the brain was performed without contrast using routine 1.5T imaging technique. CT comparison 02/20/2017. There is no evidence for a recent ischemic insult on the diffusion series. There is mild generalized atrophy for age group. There is mild periventricular white matter signal abnormality nonspecific likely due to small vessel disease. Major intracranial flow voids maintained. There are chunky calcifications along the falx, largest anteriorly about 2.3 x 1.2 cm dimension. It is possible that this is densely calcified meningioma but falcine calcifications favored given the extent of involvement. Mastoid air cells clear. Paranasal sinus disease present with mucosal thickening but no definite sinus air-fluid level. There is no MRI evidence for intracranial hemorrhage. IMPRESSION 1. No evidence for a recent ischemic insult on the diffusion series. 2. Mild generalized atrophy for age group. Mild periventricular white matter signal abnormality likely due to small vessel disease. 3. Dense parafalcine calcifications noted fairly chunky probably not of any further significance clinically. Please correlate for any clinical concern for any abnormalities of calcium phosphorus metabolism. Dictated by... Renu Mackay M.D. [facility] A Service of [facility] & [facility] RADIOLOGY TEXT RESULTS PATIENT: ESTEFANY DON LOCATION: [facility] 451-01 : 61 UNIT #: [id number] AGE: [address]: Paulette Kennedy MD SEX: M ORDER DR: THIS IS AN ELECTRONICALLY VERIFIED REPORT Renu Mackay M.D. at 02/23/2017 3:40 PM BEE/shelli TD: 02/23/2017 09:16 JOB #: [id number] MRI CENTER REPORT Page 1 of 1 COPY
--- NOTE | ~2017-02-20 | DS ---
Unit #: [id number] #: [id number] Patient: ESTEFANY DON [id number] [address] [place], [place] [address] [id number] I MR#: [id number] NAME: ESTEFANY DON ROOM: 451 Age: 51 Sex: M Admission Date: 02/21/2017 : 1965 Discharge Date: 02/23/2017 Attending Physician: Paulette Kennedy M.D. Primary Care Physician: No Primary Care Physician DISCHARGE SUMMARY DISCHARGE DIAGNOSES 1. Left lower extremity paraesthesia, which is resolved status post neurology evaluation. Status post physical therapy/occupational therapy evaluation. Status post negative workup. 2. Multilevel degenerative disk disease. 3. Status post acute renal failure. Discharge date BUN and creatinine 13 and 0.8. 4. Diabetes. 5. Obesity. 6. Hypertension. DISCHARGE MEDICATIONS 1. Tylenol p.r.n. 2. Zestoretic 5/12.5 mg one tablet p.o. at bedtime. 3. Neurontin 600 mg b.i.d. 4. Lexapro 10 mg daily. 5. Trazodone 150 mg at bedtime. 6. Mirapex 0.5 mg daily. 7. Basaglar 100 units subcutaneous at bedtime. 8. Humalog 10 units subcutaneous t.i.d. 9. Plentywood 10/325 one tablet q.i.d. p.r.n. for pain. 10. Vitamin D2 at 50,000 units p.o. weekly. CONSULT DURING HOSPITAL STAY Dr. Torre, neurology. LABORATORY, DIAGNOSTICS, AND PROCEDURES DURING HOSPITAL STAY 1. MRI of the brain, MRA of the head, and MRI of the lumbar spine were unremarkable except of multilevel mild spinal stenosis at the L-spine. 2. Chest x-ray: Unremarkable. 3. CT of the head without contrast: Unremarkable. HISTORY OF PRESENT HOSPITAL STAY Please refer to H and P done by my colleague, Dr. Novak, for initial presentation of this gentleman. ACTIVE PROBLEMS AND DIAGNOSES 1. Left lower extremity paraesthesia diagnosed with the polyneuropathy in the past by primary neurologist. Currently, his symptoms resolved status post neurology evaluation, status post negative workup as above, status post physical therapy/occupational therapy evaluation. No need for rehab. Stable to be discharged. 2. Mild spinal stenosis with degenerative disk disease: Outpatient followup with spinal surgery p.r.n. Outpatient followup with primary care. Unit #: [id number] #: [id number] Patient: ESTEFANY DON 3. Status post acute kidney injury: Resolved. Restarting Zestoretic at the lower dose since patient is diabetic and needs an CHAD inhibitor. 4. Diabetes: Continue home regimen. 5. Obesity: Counseled on importance of losing some weight. 6. Hypertension: Stable. DISCHARGE MEDICATIONS As above. DISPOSITION As above. FOLLOWUP Outpatient followup with neurology, spinal surgery, primary care physician, and endocrinology. Dictated by... Rachel Poole/artis TD: 02/23/2017 12:49 JOB #: [id number] DISCHARGE SUMMARY Page 1 of 1 X Pelon Navarro MD X DISCHARGE SUMMARY
--- NOTE | ~2017-02-20 | MR122 ---
[facility] A Service of [facility] RADIOLOGY TEXT RESULTS PATIENT: ESTEFANY DON LOCATION: [facility]-01 : 61 UNIT #: [id number] AGE: [address]: Paulette Kennedy MD SEX: M ORDER DR: [id number] [facility] [address] [place], [place] [address] [id number] MR#: [id number] Acc #: [id number] NAME: ESTEFANY DON. : 1965 SEX: M STUDY DATE/TIME: 02/22/2017 20:08 UNIT: [facility] ROOM: [facility] STUDY DESCRIPTION: MR MRA Head Wo Contrast Attending Physician: Paulette Kennedy M.D. Ordering Physician: Aisha Torre M.D. Primary Care Physician: No Primary Care Physician MRI CENTER REPORT This report is preliminary unless electronic signature is present. EXAM MR angiogram [place]. HISTORY Dizziness for a week to 10 days, sudden onset left leg numbness since 3 a.m. on 02/21/2012. History of hypertension, diabetes. COMMENT MR angiography performed [place] vasculature without contrast. No previous. There is no intracranial vascular cutoff. There are 3 A2 type vessels and it is not clear if there is a complete anterior communicating artery present. No significant posterior communicator is seen on either side. No focal central stenosis. No convincing evidence for intracranial aneurysm. IMPRESSION There is no intracranial vascular cutoff. No focal central stenosis is appreciated. Anatomy at the level of the anterior communicator is complex. Neither posterior communicator is definitely seen. Nothing to suggest intracranial aneurysm allowing for the technical limitation of MR angiography for evaluation of small intracranial aneurysms. Dictated by... Renu Mackay M.D. THIS IS AN ELECTRONICALLY VERIFIED REPORT Renu Mackay M.D. at 02/23/2017 3:40 PM BEE/goran [facility] A Service [facility] RADIOLOGY TEXT RESULTS PATIENT: ESTEFANY DON LOCATION: [facility] 451-01 : [birth year] UNIT #: [id number] AGE: [address]: Paulette Kennedy MD SEX: M ORDER DR: TD: 02/23/2017 09:13 JOB #: [id number] MRI CENTER REPORT Page 1 of 1 COPY
--- NOTE | ~2017-02-20 | CR72 ---
[facility] A Service of [facility] RADIOLOGY TEXT RESULTS PATIENT: ESTEFANY DON LOCATION: [place] [address] : [birth year] UNIT #: [id number] AGE: [address]: Leandro Morales MD SEX: M ORDER DR: [id number] [facility] [address] [place], [place] [address] [id number] MR#: [id number] Acc #: [id number] NAME: ESTEFANY DON. : 1965 SEX: M STUDY DATE/TIME: 02/21/2017 02:43 UNIT: [facility] ROOM: [id number] STUDY DESCRIPTION: CR Chest Single View Portable Attending Physician: Leandro Morales M.D. Ordering Physician: Hiram Burgos D.O. Primary Care Physician: Primary Care Physician No MEDICAL IMAGING REPORT This report is preliminary unless electronic signature is present EXAM Portable chest 02/21/2017 02:43 INDICATION Dizziness and hypotension for 1 week. History of hypertension. COMPARISON 01/27/2017. FINDINGS A single AP portable view of the chest shows both lungs to be clear. The heart is normal in size. The mediastinal contour is normal. No significant bone abnormalities are seen. IMPRESSION Normal portable chest. Dictated by... Damaso Myers Jr., M.D. THIS IS AN ELECTRONICALLY VERIFIED REPORT Damaso Myers Jr., M.D. at 02/21/2017 9:14 PM MALU/shelli TD: 02/21/2017 10:54 JOB #: [id number] MEDICAL IMAGING REPORT Page 1 of 1 COPY
--- NOTE | ~2017-02-20 | CT71 ---
[facility] A Service of [facility] RADIOLOGY TEXT RESULTS PATIENT: ESTEFANY DON LOCATION: [place] [address] : [birth year] UNIT #: [id number] AGE: [address]: Leandro Morales MD SEX: M ORDER DR: [id number] [facility] [address] [place], [place] [address] [id number] I MR#: [id number] Acc #: [id number] NAME: ESTEFANY DON : 1965 SEX: M STUDY DATE/TIME: 02/20/2017 23:49 UNIT: [facility] ROOM: [id number] STUDY DESCRIPTION: CT Head Wo Contrast Attending Physician: Leandro Morales M.D. Ordering Physician: Hiram Burgos D.O. Primary Care Physician: Primary Care Physician No MEDICAL IMAGING REPORT This report is preliminary unless electronic signature is present EXAM Head CT 02/20/2017 23:49 INDICATION Weakness with left leg numbness that started today. Dizziness as well. History of hypertension. FINDINGS Axial images were obtained from the base to the vertex without contrast. Comparison made with 01/27/2017. This CT examination was performed with one or more of the following radiation dose reduction techniques: automatic exposure control, adjustment of mA and/or kV according to patient size, and iterative reconstruction. Ventricular size and configuration remain normal. Dense calcification along the falx is unchanged. There is no acute infarct or hemorrhage. There are no masses. There are no skull fractures. IMPRESSION No acute intracranial abnormalities. No skull fracture. No change from prior. Dictated by... Damaso Myers Jr., M.D. THIS IS AN ELECTRONICALLY VERIFIED REPORT Damaso Myers Jr., M.D. at 02/21/2017 9:13 PM MALU/shelli TD: 02/21/2017 08:52 JOB #: [id number] [facility] A Service [facility] RADIOLOGY TEXT RESULTS PATIENT: ESTEFANY DON [facility] [address] [id number] : [birth year] UNIT #: [id number] AGE: [address]: Leandro Morales MD SEX: M ORDER DR: MEDICAL IMAGING REPORT Page 1 of 1 COPY
[~2017-02-20 18:05] MED LIST changes: +TYLENOL325 M1 PO
[2017-02-20 22:13] LABS: BASOPHIL# 0.2 X10e3 (0-0.3); BASOPHIL% 1.2 % (0-2.5); EOSINOPHIL# 0.3 X10e3 (0-0.7); EOSINOPHIL% 1.9 % (0.0-7.0); HEMOGLOBIN 15.9 gm/dL (13.0-16.0); LYMPHOCYTE# 1.7 X10e3 (1.0-3.5); LYMPHOCYTE% 12.9 % (17.0-45.0); MEAN CELL VOLUME 90.9 FL (83-96); MEAN CORPUSCULAR HEMOGLOBIN 30.1 PG (28-34); MEAN CORPUSCULAR HGB CONC 33.1 g/dL (30-36); MEAN PLATELET VOLUME 8.7 FL (6.5-11.5); MONOCYTE# 0.8 X10e3 (0-1.0); MONOCYTE% 6.4 % (3.0-12.0); NEUTROPHIL# 10.1 X10e3 (1.5-7.1); NEUTROPHIL% 77.6 % (40-75); PLATELET COUNT 311 X10e3 (140-420); RED BLOOD COUNT 5.28 X10e (3.90-5.60); RED CELL DISTRIBUTION WIDTH 13.5 % (11.0-15.5)
[2017-02-20 22:20] LABS: DIFF IND NO
[2017-02-20 22:35] LABS: ALBUMIN SERUM 3.9 g/dL (3.5-5.0); BILIRUBIN,TOTAL 0.5 mg/dL (0.2-2.0); BUN/CREATININE RATIO 11.48; CALCIUM SERUM 9.6 mg/dL (8.4-10.2); CREATININE SERUM 2.7 mg/dL (0.6-1.4); GLOM FILT RATE Estimated 25.7 mL/min (>60); POTASSIUM 4.6 mmol/L (3.5-5.1); PROTEIN TOTAL SERUM 7.2 g/dL (6.0-8.3)
[2017-02-20 23:56] LABS: POC - CKMB <1.0 ng/mL (0.0-7.9); POC - TROPONIN <0.05 ng/mL (<=0.05)
[2017-02-21 02:03] LABS: POC - CKMB <1.0 ng/mL (0.0-7.9); POC - TROPONIN <0.05 ng/mL (<=0.05)
[2017-02-21 03:18] LABS: URINE SOURCE CLEAN CATCH
[2017-02-21 03:26] LABS: URINE APPEARANCE CLOUDY; URINE BILIRUBIN NEG (NEG); URINE BLOOD 2+ (NEG); URINE COLOR YELLOW; URINE GLUCOSE >1000 MG/DL (NEG); URINE KETONE TRACE (NEG); URINE LEUKOCYTE ESTERASE NEG (NEG); URINE NITRATE NEG (NEG); URINE PROTEIN NEG (NEG); URINE SPECIFIC GRAVITY 1.021 (1.003-1.035)
[2017-02-21 03:28] LABS: URINE BACTERIA AUWI NEG (NEGATIVE); URINE SQUAMOUS EPITHELIAL CELL OCC /[HPF]; UWBCS1 AUWI 0-2 (0-5)
[2017-02-21 03:35] LABS: AMPHETAMINE NEG (NEG); BARBITURATES NEG (NEG); BENZODIAZEPINES NEG (NEG); COCAINE NEG (NEG); MARIJUANA NEG (NEG); OPIATES POS (NEG); TRICYCLIC ANTIDEPRESSANTS NEG (NEG); U METHADONE NEG (NEG)
[2017-02-21 03:39] LABS: CULTURE INDICATED? NO
[2017-02-21 03:40] LABS: URINE AMORPHOUS SEDIMENT AMORP URATES
[2017-02-21 09:51] LABS: BUN/CREATININE RATIO 22.14; CALCIUM SERUM 8.5 mg/dL (8.4-10.2); CREATININE SERUM 1.4 mg/dL (0.6-1.4); POTASSIUM 3.8 mmol/L (3.5-5.1)
[2017-02-21 14:10] LABS: INR 1.1; PROTHROMBIN TIME (PATIENT) 11.4 SECONDS (9.6-11.5)
[2017-02-22 03:34] LABS: BASOPHIL# 0.1 X10e3 (0-0.3); BASOPHIL% 1.5 % (0-2.5); EOSINOPHIL# 0.4 X10e3 (0-0.7); EOSINOPHIL% 7.1 % (0.0-7.0); LYMPHOCYTE# 1.5 X10e3 (1.0-3.5); LYMPHOCYTE% 24.6 % (17.0-45.0); MEAN CELL VOLUME 91.6 FL (83-96); MEAN CORPUSCULAR HEMOGLOBIN 30.4 PG (28-34); MEAN CORPUSCULAR HGB CONC 33.2 g/dL (30-36); MEAN PLATELET VOLUME 9.1 FL (6.5-11.5); MONOCYTE# 0.5 X10e3 (0-1.0); NEUTROPHIL# 3.7 X10e3 (1.5-7.1); NEUTROPHIL% 58.8 % (40-75); PLATELET COUNT 195 X10e3 (140-420); RED BLOOD COUNT 4.37 X10e (3.90-5.60); RED CELL DISTRIBUTION WIDTH 13.4 % (11.0-15.5)
[2017-02-22 03:37] LABS: DIFF IND NO; HEMOGLOBIN 13.3 gm/dL (13.0-16.0); WHITE BLOOD COUNT 6.3 X10e3 (4.0-10.5)
[2017-02-22 03:54] LABS: BILIRUBIN,TOTAL 0.7 mg/dL (0.2-2.0); BUN/CREATININE RATIO 24.44; CALCIUM SERUM 8.3 mg/dL (8.4-10.2); CREATININE SERUM 0.9 mg/dL (0.6-1.4); GLOM FILT RATE Estimated 97.2 mL/min (>60); POTASSIUM 3.7 mmol/L (3.5-5.1); PROTEIN TOTAL SERUM 5.7 g/dL (6.0-8.3)
[2017-02-23 04:11] LABS: BLOOD UREA NITROGEN 13 mg/dL (9-23); BUN/CREATININE RATIO 16.25; CALCIUM SERUM 8.9 mg/dL (8.4-10.2); CARBON DIOXIDE 27 mmol/L (22-31); CHLORIDE 105 mmol/L (100-111); CHOLESTEROL 264 mg/dL (0-200); CREATININE SERUM 0.8 mg/dL (0.6-1.4); GLUCOSE FASTING 151 mg/dL (70-110); HDL CHOLESTEROL 28 mg/dL (29-75); POTASSIUM 4.2 mmol/L (3.5-5.1); SODIUM 138 mmol/L (135-145)
[2017-02-23 04:17] LABS: TRIGLYCERIDES 882 mg/dL (10-160)
== END 2017-02-23 22:00 | disposition home or self-care (01) | DRG 92 ==
LOC: CED 18:05 → CEDOF 02-21 04:30 → C4B 02-21 04:55 → CEDOF 02-21 04:55 → CED 02-21 04:55 → CEDOF 02-21 11:58 → C4B 02-21 11:58
PROVIDERS: Emergency Medicine; Internal Medicine
DX: R20.0 Anesthesia of skin (principal); N17.9 Acute kidney failure, unspecified; E11.40 Type 2 diabetes mellitus with diabetic neuropathy, unspecified; M51.36 Other intervertebral disc degeneration, lumbar region; M48.06 Spinal stenosis, lumbar region; Z79.4 Long term (current) use of insulin; E66.9 Obesity, unspecified; Z68.36 Body mass index [BMI] 36.0-36.9, adult; I10 Essential (primary) hypertension; D72.829 Elevated white blood cell count, unspecified; E03.9 Hypothyroidism, unspecified; Z82.3 Family history of stroke
CPT/HCPCS: 70450; 70544; 70551; 71010; 72100; 72131; 72148; 80048; 80053; 80061; 80307; 81003; 82247; 82553; 82947; 83605; 84484; 85025; 85610; 93005; 93880; 97161; 99285; J0696; J1650; J1815

== ENCOUNTER 2017-05-07 21:18 | Emergency (ER) | payer OTHER ==
[~2017-05-07] VITALS: Ht 170.2 cm; Wt 103.9 kg
--- NOTE | ~2017-05-07 | EKG ---
PATIENT: ESTEFANY DON UNIT #: [id number] Ventricular Rate: 82 BPM Atrial Rate: 82 BPM P-R Interval: 172 ms QRS Duration: 104 ms Q-T Interval: 474 ms QTC Calculation(Bezet): 553 ms P Calion: 7 degrees Calculated R Calion: 64 degrees Calculated T Calion: 50 degrees Diagnosis Line: Normal sinus rhythm Diagnosis Line: Prolonged QT Diagnosis Line: Abnormal ECG Diagnosis Line: No previous ECGs available Diagnosis Line: Confirmed by ANDRE ESCOBEDO MD ([id number]) on Diagnosis Line: 05/08/2017 7:32:18 AM INTERPRETING MD: GREGG JONES
[2017-05-07 22:33] LABS: BASOPHIL# 0.1 X10e3 (0-0.3); BASOPHIL% 1.3 % (0-2.5); EOSINOPHIL# 0.2 X10e3 (0-0.7); EOSINOPHIL% 1.7 % (0.0-7.0); HEMOGLOBIN 15.1 gm/dL (13.0-16.0); LYMPHOCYTE# 1.8 X10e3 (1.0-3.5); LYMPHOCYTE% 15.4 % (17.0-45.0); MEAN CELL VOLUME 87.8 FL (83-96); MEAN CORPUSCULAR HEMOGLOBIN 30.1 PG (28-34); MEAN CORPUSCULAR HGB CONC 34.3 g/dL (30-36); MEAN PLATELET VOLUME 8.4 FL (6.5-11.5); MONOCYTE# 0.7 X10e3 (0-1.0); MONOCYTE% 6.3 % (3.0-12.0); NEUTROPHIL# 8.8 X10e3 (1.5-7.1); NEUTROPHIL% 75.3 % (40-75); PLATELET COUNT 262 X10e3 (140-420); RED BLOOD COUNT 5.01 X10e (3.90-5.60); RED CELL DISTRIBUTION WIDTH 13.4 % (11.0-15.5); WHITE BLOOD COUNT 11.6 X10e3 (4.0-10.5)
[2017-05-07 22:35] LABS: DIFF IND NO
[2017-05-07 23:01] LABS: ALBUMIN SERUM 3.9 g/dL (3.5-5.0); BILIRUBIN, DIRECT 0.2 mg/dL (0.0-0.2); BILIRUBIN,INDIRECT 1.2 mg/dL (0.0-0.9); BILIRUBIN,TOTAL 1.4 mg/dL (0.2-2.0); BUN/CREATININE RATIO 14.5; CALCIUM SERUM 9.3 mg/dL (8.4-10.2); GLOM FILT RATE Estimated 36.7 mL/min (>60); POTASSIUM 3.2 mmol/L (3.5-5.1); PROTEIN TOTAL SERUM 6.9 g/dL (6.0-8.3)
[2017-05-07 23:58] LABS: POC - CKMB <1.0 ng/mL (0.0-7.9); POC - TROPONIN <0.05 ng/mL (<=0.05)
== END 2017-05-08 01:40 | disposition home or self-care (01) ==
LOC: CED 21:18
PROVIDERS: Emergency Medicine
DX: I95.9 Hypotension, unspecified (principal); R11.0 Nausea; I12.9 Hypertensive chronic kidney disease with stage 1 through stage 4 chronic kidney disease, or unspecified chronic kidney disease; E11.22 Type 2 diabetes mellitus with diabetic chronic kidney disease; N18.9 Chronic kidney disease, unspecified; Z79.4 Long term (current) use of insulin; E11.40 Type 2 diabetes mellitus with diabetic neuropathy, unspecified; E66.9 Obesity, unspecified; Z87.891 Personal history of nicotine dependence
CPT/HCPCS: 36415; 80048; 80076; 82553; 83690; 84484; 85025; 93005; 96361; 96374; 96375; 99285; J2405